=== PATIENT | male | born 1970 | race Caucasian/White ===

== ENCOUNTER 2024-02-22 22:00 | Emergency (ER) | payer SELFPAY ==
[~2024-02-22] VITALS: Ht 175.3 cm; Wt 48.9 kg
[2024-02-22 22:31] LABS: BASO % 0.2 % (0.0-1.0); HEMATOCRIT 37.9 % (42.0-52.0); HEMOGLOBIN 13.4 g/dl (13.5-17.5); LYMPH # 0.6 10^3/uL (1.5-5.0); LYMPH % 11.6 % (24.0-44.0); MEAN CORPUSCULAR HEMOGLOBIN 30.9 pg (27.0-33.0); MEAN CORPUSCULAR HGB CONC 35.4 g/dl (32.0-36.5); MEAN CORPUSCULAR VOLUME 87.3 fl (80.0-96.0); MONO # 0.6 10^3/uL (0.0-0.8); MONO % 11.6 % (2.0-8.0); NEUTROPHILS # 3.8 10^3/uL (1.5-8.5); NEUTROPHILS % 76.2 % (36.0-66.0); PLATELET COUNT, AUTOMATED 159 10^3/uL (150-450); RED BLOOD COUNT 4.34 10^6/uL (4.30-6.10)
[2024-02-22 22:42] LABS: PROTHROMBIN TIME 12.9 SECONDS (12.5-14.5)
[2024-02-22 22:55] LABS: CK-MB VALUE MASS < 1.0 NG/ML (<3.6)
[2024-02-22 22:56] LABS: LIPASE 37 U/L (12-53)
[2024-02-22 22:58] LABS: ALBUMIN 4.5 G/DL (3.2-5.2); ALKALINE PHOSPHATASE 59 U/L (46-116); ALT/SGPT 36 U/L (7.0-40); AST/SGOT 35 U/L (<34); BILIRUBIN,DIRECT 0.3 MG/DL (<0.4); BILIRUBIN,TOTAL 0.9 MG/DL (0.3-1.2); BLOOD UREA NITROGEN 9 MG/DL (9-23); CALCIUM LEVEL 11.7 MG/DL (8.5-10.1); CARBON DIOXIDE LEVEL 28 MMOL/L (20-31); CHLORIDE LEVEL 97 MMOL/L (98-107); CPK CREATINE PHOSPHOKINASE 61 U/L (46-171); CREATININE FOR GFR 0.64 MG/DL (0.70-1.30); GLOMERULAR FILTRATION RATE > 60.0 (>56); GLUCOSE, FASTING 202 MG/DL (60-100); MB/CK RELATIVE INDEX 1.63 (< OR =4); POTASSIUM SERUM 3.7 MMOL/L (3.5-5.1); SODIUM LEVEL 132 MMOL/L (136-145)
[2024-02-23] MEDS: PANTOPRAZOLE 40MG VIAL IV ONE (04:28)
[2024-02-23] MEDS: FAMOTIDINE IV BAG 20 MG in IV 1 EA IV ONE (04:29)
[2024-02-23] MEDS: GASTROGRAFIN SOLUTION 30ML PO SCH (04:30)
[2024-02-23] MEDS ORDERED: ISOVUE-370 76% 100ML VIAL As Ordered ONE (05:09)
[2024-02-23 06:01] VITALS: TEMP 97.2
[2024-02-23] MEDS ORDERED: PEPC1TAB5 PO (06:45)
[2024-02-23] MEDS ORDERED: OMEP40CA4 PO (06:45)
[2024-02-23] MEDS ORDERED: CARA1TAB6 PO (06:45)
[2024-02-23 06:46] VITALS: O2SAT 99
[2024-02-23] MEDS: SUCRALFATE 1 GM TAB PO ONE (06:50)
[2024-02-23 06:52] VITALS: BP 173/87
== END 2024-02-23 06:59 | disposition home or self-care (01) ==
LOC: M ED 22:00
DX: K30 Functional dyspepsia (principal); F17.200 Nicotine dependence, unspecified, uncomplicated; F12.10 Cannabis abuse, uncomplicated; F10.10 Alcohol abuse, uncomplicated; Z88.6 Allergy status to analgesic agent; Z88.8 Allergy status to other drugs, medicaments and biological substances; Z79.899 Other long term (current) drug therapy
CPT/HCPCS: 71045; 74177; 80053; 82248; 82550; 82553; 83690; 84484; 85025; 85610; 93005; 96374; 96375; 99284; J2470; Q9963; Q9967; S0028